=== PATIENT | male | born 1940 | race Two or more races ===

== ENCOUNTER 2023-10-11 16:26 | Inpatient (IN) | payer OTHER ==
[~2023-10-11] VITALS: Ht 167.6 cm; Wt 64.9 kg
[2023-10-11] MEDS ORDERED: SIMVASTATIN5 MG PO (16:48)
[2023-10-11] MEDS ORDERED: INDERAL XL80 MG PO (16:48)
--- NOTE | 2023-10-11 16:48 | NUR ---
PTE ALERTA Y ORIENTADO X3 EN AMBULANICIA. PTE INDICA SER TRANSFER DEL [facility] [place]. PTE REFIERE FRACTURA DE CADERA LADO DAIANA. SE MIDEN VITALES Y SE UBICA
[2023-10-11] MEDS ORDERED: 0.9 % SODIUM CHLORIDE 1,000 ML IV SCH ×2 (17:00→19:45)
--- NOTE | 2023-10-11 17:06 | NUR ---
PTE ALERTA,ESTABLE Y ORIENTADO.SE EDUCA SOBRE EL TRATAMIENTO QUE RECIBIRA EN EL HOSPITAL Y PARMINDER RIFERE ENTENDER.SE LE PURNIMA MUESTRAS DE AG[place] Y SE LE ADMINISTRA MEDICAMENTOS OSCAR ORDEN MEDICA
[2023-10-11 17:41] LABS: URINE APPEARANCE Clear; URINE BILIRRUBIN Negative (NEGATIVE); URINE BLOOD Small; URINE COLOR Yellow; URINE GLUCOSE Negative (NEGATIVE); URINE LEUKOCYTE Small; URINE NITRATE Negative; URINE PROTEIN Negative (NEGATIVE)
[2023-10-11 17:42] LABS: HEMATOCRIT 38.6 % (39.0-48.0); MEAN CELL VOLUME 97.3 fL (80.0-100.00); MEAN CORPUSCULAR HEMOGLOBIN 32.8 pg (27.00-32.0); MEAN CORPUSCULAR HGB CONC 33.7 g/dl (32.0-36.0); PLATELET COUNT 130 K/uL (150-450); RED BLOOD COUNT 3.97 M/uL (4.00-6.00); RED CELL DISTRIBUTION WIDTH 13.9 % (11.5-14.5)
[2023-10-11 17:44] LABS: URINE BACTERIA 18.8 uL (0.0-1933); URINE EPITHELIAL CELLS 1.7 uL (0.0-38.8); URINE RBC 118.4 uL (0.0-20.8); URINE WBC 29.8 uL (0.0-23.2)
[2023-10-11 18:02] LABS: INR 0.99; PROTHROMBIN TIME 10.4 SECONDS (9.0-11.5)
[2023-10-11 18:04] LABS: CALCIUM 9.1 mg/dL (8.5-10.1); CREATININE SERUM 1.52 mg/dL (0.70-1.30); GFR 44.12; POTASSIUM 4.34 mEq/L (3.5-5.1)
[2023-10-11] MEDS ORDERED: OxyCODONE HCL/APAP UD (PERCOCET) PO PRN (19:45)
[2023-10-11] MEDS ORDERED: ACETAMINOPHEN 500 MG GEL..CAP PO PRN (19:45)
[2023-10-11] MEDS ORDERED: ONDANSETRON HCL 4 MG in 0.9 % SODIUM CHLORIDE 50 ML IV PRN (19:45)
[2023-10-12 00:46] LABS: MAGNESIUM 1.9 mg/dL (1.8-2.4); PHOSPHOROUS 2.6 mg/dL (2.5-4.9)
[2023-10-12] MEDS ORDERED: MEPERIDINE HCL/PF 50 MG/ML VIAL IM PRN (08:45)
[2023-10-12] MEDS ORDERED: 0.9 % SODIUM CHLORIDE 1,000 ML IV SCH (08:45)
[2023-10-12] MEDS ORDERED: PROMETHAZINE HCL 50 MG/ML AMPUL IM PRN (08:45)
[2023-10-12] MEDS ORDERED: OxyCODONE HCL/APAP UD (PERCOCET) PO PRN (08:45)
[2023-10-12] MEDS ORDERED: FINASTERIDE 5 MG TABLET PO SCH (09:00)
[2023-10-12] MEDS ORDERED: PROPRANOLOL HCL 80 MG TABLET PO SCH (09:00)
[2023-10-12] MEDS ORDERED: TAMSULOSIN HCL 0.4 MG CAP PO SCH (09:00)
[2023-10-12] MEDS ORDERED: PANTOPRAZOLE SODIUM 40 MG/VIAL VIAL IV SCH (09:00)
[2023-10-12 16:04] LABS: URINE APPEARANCE Clear; URINE BILIRRUBIN Negative (NEGATIVE); URINE BLOOD Large; URINE COLOR Yellow; URINE GLUCOSE Negative (NEGATIVE); URINE LEUKOCYTE Large; URINE NITRATE Negative; URINE PROTEIN Negative (NEGATIVE); URINE UROBILINOGEN 0.2 E.U./dl
[2023-10-12 16:04] LABS: HEMATOCRIT 45.1 % (39.0-48.0); HEMOGLOBIN 14.9 g/dL (13-16.00); MEAN CORPUSCULAR HEMOGLOBIN 32.4 pg (27.00-32.0); MEAN CORPUSCULAR HGB CONC 33.1 g/dl (32.0-36.0); PLATELET COUNT 137 K/uL (150-450); RED CELL DISTRIBUTION WIDTH 14.1 % (11.5-14.5)
[2023-10-12 16:08] LABS: URINE EPITHELIAL CELLS 2.1 uL (0.0-38.8); URINE RBC 1054.2 uL (0.0-20.8); URINE WBC 172.3 uL (0.0-23.2)
[2023-10-12 16:16] LABS: URINE BACTERIA > 9821.5 uL (0.0-1933)
[2023-10-12 16:35] LABS: CALCIUM 9.4 mg/dL (8.5-10.1); MAGNESIUM 2.1 mg/dL (1.8-2.4)
[2023-10-12] MEDS ORDERED: SIMVASTATIN 10 MG TABLET PO SCH (17:00)
[2023-10-13 07:14] LABS: INR 1.02; PARTIAL THROMBOPLASTIN TIME 28.5 SECONDS (22.0-34.0); PROTHROMBIN TIME 10.7 SECONDS (9.0-11.5)
[2023-10-13] MEDS ORDERED: POVIDONE-IODINE 3 EA MED..SWAB TOP ONE ×2 (15:02→15:30)
[2023-10-13] MEDS ORDERED: ISOPROPYL ALCOHOL 30 ML OUNCE TOP ONE (15:30)
[2023-10-13] MEDS ORDERED: SIMVASTATIN 10 MG TABLET PO SCH (17:00)
[2023-10-13] MEDS ORDERED: ONDANSETRON HCL 2 MG/ML VIAL IV PRN (17:30)
[2023-10-13] MEDS ORDERED: SODIUM CHLORIDE 0.45 % 1,000 ML IV SCH (17:30)
[2023-10-13] MEDS ORDERED: OxyCODONE HCL 5 MG TABLET (ROXICODONE) PO PRN (17:30)
[2023-10-13] MEDS ORDERED: MORPHINE SULFATE 4 MG/ML CARTRIDGE IV PRN (17:30)
[2023-10-13] MEDS ORDERED: ACETAMINOPHEN 500 MG GEL..CAP PO SCH (18:00)
[2023-10-13] MEDS ORDERED: CIPROFLOXACIN IN 5 % DEXTROSE 400 MG/200 ML PIGGYBAG IV ONE ×2 (18:30→20:02)
[2023-10-13] MEDS ORDERED: VANCOMYCIN HCL 1,000 MG in 0.9 % SODIUM CHLORIDE 250 ML IV SCH (21:00)
[2023-10-14] MEDS ORDERED: GABAPENTIN 300 MG CAPSULE PO SCH (01:00)
[2023-10-14 07:54] LABS: HEMATOCRIT 29.6 % (39.0-48.0); HEMOGLOBIN 10.1 g/dL (13-16.00); MEAN CELL VOLUME 96.6 fL (80.0-100.00); MEAN CORPUSCULAR HEMOGLOBIN 32.8 pg (27.00-32.0); RED BLOOD COUNT 3.06 M/uL (4.00-6.00); RED CELL DISTRIBUTION WIDTH 13.5 % (11.5-14.5)
[2023-10-14 07:56] LABS: PLATELET COUNT 126 K/uL (150-450)
[2023-10-14 08:30] LABS: ALBUMIN 2.4 gm/dL (3.4-5.0); BILIRUBIN TOTAL 0.85 mg/dL (0.3-1.2); CALCIUM 8.3 mg/dL (8.5-10.1); CREATININE SERUM 1.45 mg/dL (0.70-1.30); GFR 46.59; POTASSIUM 4.72 mEq/L (3.5-5.1); TOTAL PROTEIN 5.4 gm/dL (6.4-8.2)
[2023-10-14] MEDS ORDERED: ELIQUIS2.5 MG PO (08:39)
[2023-10-14] MEDS ORDERED: CIPRO500 MG PO (08:39)
[2023-10-14] MEDS ORDERED: PERCOCET 5-3251 EACH PO (08:39)
[2023-10-14] MEDS ORDERED: APIXABAN 2.5 MG TABLET PO SCH (09:00)
[2023-10-14] MEDS ORDERED: SENNOSIDES 1 TAB TABLET PO SCH (09:00)
[2023-10-14] MEDS ORDERED: VITAMIN B COMPLEX 1 EACH PO SCH (14:22)
[2023-10-14] MEDS ORDERED: Cyanocobalamin/Mecobalamin 1 TAB.SL SL SCH (14:23)
[2023-10-14] MEDS ORDERED: SOD FERRIC GLUC COMPLX/SUCROSE 125 MG in 0.9 % SODIUM CHLORIDE 100 ML IV SCH (14:23)
[2023-10-15 06:33] LABS: HEMATOCRIT 32.6 % (39.0-48.0); MEAN CELL VOLUME 95.7 fL (80.0-100.00); MEAN CORPUSCULAR HEMOGLOBIN 32.1 pg (27.00-32.0); MEAN CORPUSCULAR HGB CONC 33.6 g/dl (32.0-36.0); PLATELET COUNT 147 K/uL (150-450); RED BLOOD COUNT 3.41 M/uL (4.00-6.00); RED CELL DISTRIBUTION WIDTH 13.8 % (11.5-14.5)
[2023-10-15] MEDS ORDERED: PANTOPRAZOLE SODIUM 40 MG TABLET.DR PO SCH (09:00)
[2023-10-15] MEDS ORDERED: IRON FUM,PS/FOLIC ACID/VITC/B3 1 CAP CAPSULE PO SCH (09:00)
[2023-10-15] MEDS ORDERED: TRAM1TAB98 PO (14:56)
== END 2023-10-15 20:15 | DRG 481 ==
LOC: ER 16:26 → SEC-K 19:48 → SURH 19:48
PROVIDERS: Emergency Medicine; General Practice; Internal Medicine; ADMIT Orthopaedic Surgery; ATTEND Orthopaedic Surgery
PROC: 0QS706Z Reposition Left Upper Femur with Intramedullary Internal Fixation Device, Open Approach (ICD-10-PCS; principal; 2023-10-13 19:30)
DX: S72.142A Displaced intertrochanteric fracture of left femur, initial encounter for closed fracture (principal); D62 Acute posthemorrhagic anemia; M80.052A Age-related osteoporosis with current pathological fracture, left femur, initial encounter for fracture; N17.9 Acute kidney failure, unspecified; E78.5 Hyperlipidemia, unspecified; N40.0 Benign prostatic hyperplasia without lower urinary tract symptoms; I12.9 Hypertensive chronic kidney disease with stage 1 through stage 4 chronic kidney disease, or unspecified chronic kidney disease; N18.9 Chronic kidney disease, unspecified; W13.3XXA Fall through floor, initial encounter; Y93.9 Activity, unspecified; Y92.009 Unspecified place in unspecified non-institutional (private) residence as the place of occurrence of the external cause; Z20.822 Contact with and (suspected) exposure to COVID-19